=== PATIENT | female | born 1995 | race Caucasian/White ===

== ENCOUNTER 2017-06-17 15:11 | Inpatient (IN) | payer MEDICAID, OTHER ==
[~2017-06-17] VITALS: Ht 157.5 cm; Wt 43.2 kg
[2017-06-17 18:21] VITALS: BP 105/69; PULSE 83; RESP 18; TEMP 98; O2SAT 99
[2017-06-17] MEDS ORDERED: NICOTINE 21 MG/24 HR PATCH T-DERMAL PRN (22:15)
[2017-06-17] MEDS ORDERED: ALUMINUM/MAGNESIUM/SIMETH 30 ML CUP PO PRN (22:15)
[2017-06-17] MEDS ORDERED: ACETAMINOPHEN 325 MG TAB PO PRN (22:15)
[2017-06-17] MEDS ORDERED: MAGNESIUM HYDROXIDE SUSP 30 ML CUP PO PRN (22:15)
[2017-06-18 05:10] VITALS: BP 119/69; PULSE 84; RESP 16; TEMP 97.6; O2SAT 97
[2017-06-18 05:44] VITALS: BP 106/63; PULSE 71; RESP 16; TEMP 97.6; O2SAT 99
[2017-06-18 09:07] LABS: BICARBONATE 28.9 MEQ/L (21.0-32.0); BLOOD UREA NITROGEN 11 MG/DL (7-18); CALCIUM 8.9 MG/DL (8.5-10.1); CHLORIDE 105 MEQ/L (98-107); CREATININE 0.63 MG/DL (0.50-1.00); GLOMERULAR FILTRATION RATE 122 ML/MIN (>89); GLUCOSE,RANDOM 92 MG/DL (74-106); SODIUM (NA) 138 MEQ/L (136-145)
[2017-06-18 09:09] LABS: CHOLESTEROL 196 MG/DL (120-200); TRIGLYCERIDES 75 MG/DL (42-150)
[2017-06-18 09:18] LABS: CHOLESTEROL/ HDL RATIO 2.76 RATIO; HDL CHOLESTEROL 70.8 MG/DL (40.0-60.0); LDL CHOLESTEROL 110 MG/DL (0-99)
--- NOTE | 2017-06-18 09:28 | PD.TTN ---
Patient Problems 1. Discharge planning 2. Medication compliance 3. Knowledge deficit 4. Lack of coping skills Progress Toward Goals Provider Present: Dr. Theodore Santoyo Provider Input: 06/18/17 - This is a new patient who apparently broke up with her boyfriend and cut superficially. Psychiatric Counselors Present: ITALIA Arzola Psych Therapist Input: 06/18/17 - Counselor will meet with patient to conduct biopsychosocial assessment. Group Spec/RT/OT/GALINDO Present: MATEO Raza Group Spec/RT/OT/GALINDO Input: 06/18/17 - new patient Discharge Plan SMA 06/18/17 - Patient will return home when discharged. Documentation Scribe: ITALIA Arzola Date Resolved: Jun 18, 2017 Ruba Gaytan Jun 18, 2017 09:28
[2017-06-18 09:30] VITALS: BP 112/77; PULSE 90; RESP 16; TEMP 98.1; O2SAT 98
--- NOTE | 2017-06-18 11:38 | HHI.HP ---
Provisional Diagnosis Admission Date Jun 17, 2017 at 18:16 Crowley I. 1. Adjustment disorder with mixed disturbance of emotions and conduct 2. History of bipolar disorder Crowley II. 1. Some cluster B personality traits Certification of Person's Competence To Provide Express and Informed Consent I have personally examined Peggy Peterson , a person being served at [facility] on, Jun 18, 2017 11:37. Express and informed consent means consent voluntarily given in writing, by a competent person, after sufficient explanation and disclosure of the subject matter involved to enable the person to make a knowing and willful decision without any element of force, fraud, deceit, duress, or other form of constraint or coercion. This person is 18 years of age or older, is not now known to be incompetent to consent to treatment with a guardian advocate, and does not have a health care surrogate or proxy currently making medical treatment decisions. I have found this person to be one of the following: [x] Competent to provide express and informed consent, as defined above, for voluntary admission to this facility and is competent to provide express and informed consent for treatment. He/she has the consistent capacity to make well reasoned, willful, and knowing decisions concerning his or her medical or mental health treatment. The person fully and consistently understands the purpose of the admission for examination/placement and is fully capable of personally exercising all rights assured [place] Incompetent to provide express and informed consent to voluntary admission, and this is incompetent to provide express and informed consent to treatment. The person must be transferred to involuntary status and a petition for a guardian advocate filed with the Circuit Court. [] Refusing to provide express and informed consent to voluntary admission but is competent to provide express and informed consent for treatment. The person must be discharged or transferred to involuntary status. Form shall be completed within 24 hours of a person's arrival at the receiving facility and filed in the clinical record of each person: 1. Admitted on a voluntary basis 2. Permitted to provide express and informed consent to his/her own treatment 3. Allowed to transfer from involuntary to voluntary status 4. Prior to permitting a person to consent to his or her own treatment after having been previously found incompetent to consent to treatment. History of Present Illness Capacity: Has Capacity Psych Chief Complaint: Overdose HPI Ms. Peterson is a 21-year-old female with a reported history of bipolar disorder who presents in transfer from [facility] under a Tuttle act. Documentation from outside hospital reviewed. Patient presented there following overdose on Seroquel. She was admitted to the ICU for management of this overdose. Reviewing our electronic medical record, I see no previous psychiatric contact within our system. Patient seen and examined with nurse. Chart reviewed. Case discussed with nursing staff. On my examination today, patient reports that she made her overdose in the setting of an argument with her jamie. She notes that "I've never been a suicidal person. My sisters get Parag Acted every week, and I knew it was a way to get away." She notes that she made her overdose on half of a bottle of 200mg Seroquel in front of jamie. She denies any suicidal or homicidal ideation, intent or plan presently. She denies any audiovisual hallucinations. I can elicit no delusional material. There is no evidence of any impairment in reality construction. Mood is "fine" and I can elicit no depressive or hypomanic/manic symptoms. Cluster B personality traits are noted. 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 Remainder of the psychiatric ROS is negative. No acute physical complaints. Past psychiatric history: Patient reports a history of bipolar disorder. She follows at [facility] and takes Seroquel 200mg at . She reports that she was admitted at age 20 to the inpatient unit primarily for substance use issues. She denies a history of previous suicide attempts. She denies a history of violent behavior. She does endorse a history of nonsuicidal self-injurious behavior, namely cutting at 12 years old. Patient reports that she has been on Seroquel for 3 years and done well with this medication. She was previously on lithium but experienced lithium toxicity. Family history: The patient reports that her sister engages in cutting behavior. Both sides of her family have bipolar and anxiety disorder diagnoses. She has 2 family members who have completed suicide. Chemical dependency history: The patient denies any abuse of substances presently. She does note a history of polysubstance abuse including cocaine. Social history: The patient lives with her father and jamie John, whom she has known for 3.5 years. She has no children. 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 She denies any history. Denies any legal history. Denies any access to guns or firearms. Denies any anglican or spiritual beliefs. She does endorse a history of trauma in the past. No reported PTSD symptoms presently. Review of Systems Except as stated in HPI: all other systems reviewed are Neg Past Family Social History Coded Allergies: No Known Allergies (Verified Allergy, Severe, 09/22/04) Past Medical History Patient denies any past medical history and takes no general medical medications. Current Medications Medications (Trade) Dose Ordered Sig/Kathy Route Start Time Stop Time Status Last Admin (Habitrol 21 Mg Patch.24 Hr) 1 patch DAILY PRN T-DERMAL 06/17/17 22:15 Miscellaneous Information 1 HS T-DERMAL 06/18/17 21:00 (Tylenol) 650 mg Q4H PRN PO 06/17/17 22:15 (Milk Of Magnesia Liq) 30 ml DAILY PRN PO 06/17/17 22:15 (Mag-Al Plus Susp Liq) 30 ml Q6H PRN PO 06/17/17 22:15 Patient's Strengths (min. 2) In a monitored setting. Verbally fluent. Physical Exam Physical exam was completed by hospitalist at outside hospital. On my examination today, the patient appears to be in no acute physical distress. No motor abnormalities noted. Labs and vitals reviewed: Vital Signs Vital Signs Date Time Temp Pulse Resp B/P (MAP) Pulse Ox O2 Delivery O2 Flow Rate FiO2 06/18/17 09:30 98.1 90 16 112/77 (89) 98 Lab Results Labs from outside hospital reviewed: CBC reveals normocytic anemia Hgb 11.1, thrombocytopenia plt 125. BMP unremarkable. Renal function intact. LFTs unremarkable. APAP, salicylate undetectable. bHCG neg. UTox +ve for BZD and tricyclics (?false positive) TTE reveals normal LV function, EF=60%. CXR read as normal. Laboratory Tests Test 06/18/17 08:00 Blood Urea Nitrogen 11 MG/DL Creatinine 0.63 MG/DL Random Glucose 92 MG/DL Calcium Level 8.9 MG/DL Sodium Level 138 MEQ/L Potassium Level 4.2 MEQ/L Chloride Level 105 MEQ/L Carbon Dioxide Level 28.9 MEQ/L Anion Gap 4 MEQ/L Estimat Glomerular Filtration Rate 122 ML/MIN Triglycerides Level 75 MG/DL Cholesterol Level 196 MG/DL LDL Cholesterol 110 MG/DL HDL Cholesterol 70.8 MG/DL Cholesterol/HDL Ratio 2.76 RATIO Thyroid Stimulating Hormone 3rd Gen 2.790 uIU/ML Beta HCG, Qualitative LESS THAN 1 MIU/ML Mental Status Examination Appearance: Appropriate Consciousness: Alert Orientation: x4 Motor Activity: Normal gait, Other (no motor abnormalities noted) Speech: Unremarkable Language: Adequate Fund of Knowledge: Adequate Attention and Concentration: Adequate Memory: Unremarkable Mood: Appropriate Affect: Appropriate Thought Process & Associations: Intact, Logical, Linear Thought Content: Appropriate Hallucination Type: None Delusion Type: None Suicidal Ideation: No Suicidal Plan: No Suicidal Intention: No Homicidal Ideation: No Homicidal Plan: No Homicidal Intention: No Insight: Fair Judgment: Impulsive Assessment & Plan Problem List: (1) Adjustment disorder with mixed disturbance of emotions and conduct ICD Codes: F43.25 - Adjustment disorder with mixed disturbance of emotions and conduct (2) History of bipolar disorder ICD Codes: Z86.59 - Personal history of other mental and behavioral disorders Assessment & Plan 21-year-old female with psychiatric history as detailed above who presents in transfer from outside hospital under Tuttle act following overdose. On my examination today, the patient reports that presenting overdose was driven largely by argument with jamie. She reports that the two have since reconciled. She denies any suicidal or homicidal ideation presently. I will plan to observe the patient briefly for any ongoing impairments in safety and to resume psychotropic medication. Admit inpatient. Voluntary status. Check EKG for QTc. So long as this is not prolonged, resume Seroquel 200 mg at bedtime. I did discuss with patient other pharmacotherapeutic options, but she feels like the Seroquel in general works well for her bipolar illness. I will instruct the counselor to ensure that family secures and dispenses medications going forward to reduce the risk of overdose. Vitals every shift. Counselor to see and obtain collateral. Disposition planning. Estimated length of stay: 2-3 days. Discharge Planning Pending outcome of observation. Request HC Surrog/Guard Advoc?: No Kvng Santoyo MD Jun 18, 2017 11:37
--- NOTE | 2017-06-18 12:52 | PD.TTN ---
Patient Problems 1. Discharge planning 2. Medication compliance 3. Knowledge deficit 4. Lack of coping skills Progress Toward Goals Provider Present: Dr. Theodore Santoyo Provider Input: 06/18/17 - Please disregard the previous documentation which was incorrectly documented by this counselor. Dr. Santoyo reported that the patient argued with her fiance and took an overdose. Psychiatric Counselors Present: ITALIA Arzola Psych Therapist Input: 06/18/17 - Counselor will meet with patient to conduct biopsychosocial assessment. Group Spec/RT/OT/GALINDO Present: MATEO Raza Group Spec/RT/OT/GALINDO Input: 06/18/17 - new patient Discharge Plan SMA 06/18/17 - Patient will return home when discharged. Documentation Scribe: ITALIA Arzola Date Resolved: Jun 18, 2017 Ruba Gaytan Jun 18, 2017 12:52
[2017-06-18 18:02] VITALS: BP 127/68; PULSE 81; RESP 18; TEMP 97.1; O2SAT 100
[2017-06-18] MEDS ORDERED: QUEtiapine FUMARATE 200 MG TAB PO SCH (21:00)
[2017-06-18] MEDS ORDERED: REMOVE OLD NICOTINE PATCH T-DERMAL SCH (21:00)
[2017-06-19 05:58] VITALS: BP 96/54; PULSE 78; RESP 16; TEMP 98.3; O2SAT 97
--- NOTE | 2017-06-19 10:45 | HHI.DS ---
Psychiatry Discharge Summary Inpatient Psychiatric care?: Yes Advance Directive: No Reason Not Provided: Information provided to patient Mental Health AdvanceDirective: No Health Care Proxy: No Admission Admission Date Jun 17, 2017 at 18:16 Admission Diagnosis: (1) Adjustment disorder with mixed disturbance of emotions and conduct ICD Code: F43.25 - Adjustment disorder with mixed disturbance of emotions and conduct (2) History of bipolar disorder ICD Code: Z86.59 - Personal history of other mental and behavioral disorders Brief History Ms. Peterson is a 21-year-old female with a reported history of bipolar disorder who presents in transfer from [facility] under a Tuttle act. Documentation from outside hospital reviewed. Patient presented there following overdose on Seroquel. She was admitted to the ICU for management of this overdose. Reviewing our electronic medical record, I see no previous psychiatric contact within our system. Patient seen and examined with nurse. Chart reviewed. Case discussed with nursing staff. On my examination today, patient reports that she made her overdose in the setting of an argument with her jamie. She notes that "I've never been a suicidal person. My sisters get Parag Acted every week, and I knew it was a way to get away." She notes that she made her overdose on half of a bottle of 200mg Seroquel in front of jamie. She denies any suicidal or homicidal ideation, intent or plan presently. She denies any audiovisual hallucinations. I can elicit no delusional material. There is no evidence of any impairment in reality construction. Mood is "fine" and I can elicit no depressive or hypomanic/manic symptoms. Cluster B personality traits are noted. 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 Remainder of the psychiatric ROS is negative. No acute physical complaints. Past psychiatric history: Patient reports a history of bipolar disorder. She follows at [facility] and takes Seroquel 200mg at . She reports that she was admitted at age 20 to the inpatient unit primarily for substance use issues. She denies a history of previous suicide attempts. She denies a history of violent behavior. She does endorse a history of nonsuicidal self-injurious behavior, namely cutting at 12 years old. Patient reports that she has been on Seroquel for 3 years and done well with this medication. She was previously on lithium but experienced lithium toxicity. Family history: The patient reports that her sister engages in cutting behavior. Both sides of her family have bipolar and anxiety disorder diagnoses. She has 2 family members who have completed suicide. Chemical dependency history: The patient denies any abuse of substances presently. She does note a history of polysubstance abuse including cocaine. Social history: The patient lives with her father and jamie John, whom she has known for 3.5 years. She has no children. 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 She denies any history. Denies any legal history. Denies any access to guns or firearms. Denies any jainism or spiritual beliefs. She does endorse a history of trauma in the past. No reported PTSD symptoms presently. Tobacco Use In Past 30 Days: Smokeless Tobacco Alcohol Use: Never Hospital Course Patient was admitted to a locked inpatient psychiatric unit. All safety precautions were taken throughout her stay. She was seen daily by a psychiatric provider and followed by a counselor. She responded well to treatment and has been no behavioral problem. Reviewed electronic medical record, labs, discuss case with staff. Patient was evaluated in her room with FRANKLIN Davis present. Upon examination today she is found to be awake, alert, and oriented. Her speech is clear, logical, and organized. She reports that she slept well. She advises that she lives with her daughter and darrell. 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 She denies any suicidal or homicidal ideation, visual or auditory hallucinations. I can elicit no delusional material at this time. Her mood is good her affect is euthymic, there is no indication of internal stimulation. Collateral information was obtained from her father who reports that he feels she is safe to come home. Patient no longer meets inpatient criteria, and I do not believe that she presents in eminent danger to herself or anyone else. Patient will be discharged to home, her father is coming to pick her up. Patient will be advised to return should her condition worsen. Results Blood Pressure 96 / 54 Vital Signs Date Time Temp Pulse Resp B/P (MAP) Pulse Ox O2 Delivery O2 Flow Rate FiO2 06/19/17 05:58 98.3 78 16 96/54 (68) 97 Laboratory Tests Test 06/18/17 08:00 Anion Gap 4 MEQ/L (5-15) LDL Cholesterol 110 MG/DL (0-99) HDL Cholesterol 70.8 MG/DL (40.0-60.0) Laboratory Results Test 06/18/17 08:00 Cholesterol Level 196 MG/DL (120-200) HDL Cholesterol 70.8 MG/DL (40.0-60.0) LDL Cholesterol 110 MG/DL (0-99) Triglycerides Level 75 MG/DL (42-150) Summary of Procedures None Pending results at discharge: No Medications # of Antipsychotic meds at D/C: 1 Approp Antipsych med options 1 - Minimum of three failed multiple trials of monotherapy. 2 - Documented plan to taper to monotherapy due to previous use of multiple meds OR cross-taper in progress at D/C. 3 - Documentation of augmentation of Clozapine. 4 - Justification other than those listed in allowable values 1-3, document here : Discharge Discharge Date: Jun 19, 2017 Discharge Diagnosis: (1) Adjustment disorder with mixed disturbance of emotions and conduct Diagnosis: Principal ICD Code: F43.25 - Adjustment disorder with mixed disturbance of emotions and conduct (2) History of bipolar disorder Diagnosis: Secondary ICD Code: Z86.59 - Personal history of other mental and behavioral disorders Pt Condition on Discharge: Stable Discharge Disposition: Discharge Home Discharge Instructions Diet Instructions: As Tolerated, No Restrictions Activities you can perform: Regular-No Restrictions Scheduled Appointment: Jassi Chan Discharge Time > 30 minutes Mental Status Examination Appearance: Appropriate Consciousness: Alert Orientation: x4 Motor Activity: Normal gait, Other (no motor abnormalities noted) Speech: Unremarkable Language: Adequate Fund of Knowledge: Adequate Attention and Concentration: Adequate Memory: Unremarkable Mood: Appropriate Affect: Appropriate Thought Process & Associations: Intact, Logical, Linear Thought Content: Appropriate Hallucination Type: None Delusion Type: None Suicidal Ideation: No Suicidal Plan: No Suicidal Intention: No Homicidal Ideation: No Homicidal Plan: No Homicidal Intention: No Insight: Fair Judgment: Adequate Discharge/Advance Care Plan Health Problems: (1) Adjustment disorder with mixed disturbance of emotions and conduct (2) History of bipolar disorder Goals to promote your health * To prevent worsening of your condition and complications * To maintain your health at the optimal level Directions to meet your goals Take your medications as prescribed Follow your dietary instruction Follow activity as directed Keep your appointments as scheduled Take your immunizations and boosters as scheduled If your symptoms worsen call your PCP, if no PCP go to Urgent Care Center or Emergency Room For 15/10 questions related to your inpatient stay or results of tests pending at discharge, please contact Dr. Dorie Morrison at Smoking is Dangerous to Your Health. Avoid second hand smoking Dorie Morrison Jun 19, 2017 10:45
[2017-06-19] MEDS ORDERED: QUET1TAB9 PO ×2 (10:49→10:57)
[2017-06-19 20:28] LABS: HEMOGLOBIN A1C 4.8 % (4.3-6.0)
--- NOTE | 2017-06-19 22:59 | EKG ---
Date Performed: 06/18/2017 Time Performed: 13:52:05 PTAGE: 21 years EKG: Sinus rhythm NORMAL ECG NO PREVIOUS TRACING DOCTOR: Latasha Treadwell Interpretating Date/Time 06/19/2017 22:58:47
== END 2017-06-19 11:30 | disposition home or self-care (01) | DRG 882 ==
LOC: H260 18:16
PROVIDERS: ADMIT Psychiatry & Neurology Psychiatry; ATTEND Psychiatry & Neurology Psychiatry
DX: F43.25 Adjustment disorder with mixed disturbance of emotions and conduct (principal); F31.9 Bipolar disorder, unspecified; T43.592D Poisoning by other antipsychotics and neuroleptics, intentional self-harm, subsequent encounter
CPT/HCPCS: 80048; 80061; 83036; 84443; 84703; 93005